=== PATIENT | female | born 1985 | race Caucasian/White ===

== ENCOUNTER 2018-08-05 10:38 | Emergency (ER) | payer OTHER ==
[~2018-08-05] VITALS: Ht 162.6 cm; Wt 56.7 kg
--- NOTE | 2018-08-05 10:44 | NUR ---
PT A/OX4, PRESENTS TO THE ER C/O RLQ ABD PAIN THAT STARTED AROUND 1400 YESTERDAY (08/04/18). PAIN IS NON-PROVOKED, DOES NOT RADIATE, SHARP IN QUALITY, 9/10, CONSTANT. PT PRESENTS W/ ABD GUARDING, ABD NON-DISTENDED IN APPEARANCE, ABD SOUNDS ACTIVE IN ALL 4 QUADRANTS, SOFT ON PALPATION. VSS. PT DENIES C/P, SOB, N/V/D, DIZZINESS, HEADACHE.
--- NOTE | 2018-08-05 10:58 | NUR ---
KEVIN FRIAS AT BEDSIDE FOR MSE.
[2018-08-05] MEDS ORDERED: IV NORMAL SALINE 1000 ML BAG IV ONE (11:00)
[2018-08-05] MEDS ORDERED: ONDANSETRON 4 MG/2 ML VIAL IV ONE (11:00)
[2018-08-05] MEDS ORDERED: KETOROLAC TROMETHAMINE 15 MG INJ IV ONE (11:00)
[2018-08-05 11:09] LABS: *BILIRUBIN,URIN NEGATIVE (NEGATIVE); *BLOOD, URINE NEGATIVE (NEGATIVE); *CLARITY,URINE CLEAR (CLEAR); *COLOR,URINE YELLOW (YELLOW); *KETONES,URINE NEGATIVE (NEGATIVE); *UROBILINOGEN,URINE 0.2 E.U./dl (NORMAL); LEUKOCYTE ESTERASE ,URINE NEGATIVE (NEGATIVE); NITRITE, URINE NEGATIVE (NEGATIVE); UGLUCOSE NEGATIVE (NEGATIVE)
[2018-08-05] MEDS ORDERED: KETOROLAC TROMETHAMINE 15 MG INJ ONE (11:14)
[2018-08-05] MEDS ORDERED: ONDANSETRON 4 MG/2 ML VIAL ONE (11:14)
--- NOTE | 2018-08-05 11:14 | NUR ---
PT C/O NAUSEA, MEDICATED W/ ONDANSETRON PER MD ORDER.
--- NOTE | 2018-08-05 11:15 | NUR ---
US TECH AT BEDSIDE.
[2018-08-05 11:16] LABS: BASOPHILS # (AUTO) 0.1 K/uL (0.0-8.0); BASOPHILS % (AUTO) 1.1 % (0.0-2.0); EOSINOPHILS % (AUTO) 0.6 % (0.0-7.0); HEMOGLOBIN 11.1 g/dL (10.9-14.3); LYMPHOCYTES % (AUTO) 25.7 % (20.5-51.5); MEAN CORPUSCULAR HEMOGLOBIN 21.4 uug (24.7-32.8); MEAN CORPUSCULAR HGB CONC 32 g/dL (32.3-35.6); MEAN CORPUSCULAR VOLUME 67.3 fL (75.5-95.3); MONOCYTES # (AUTO) 0.5 K/uL (2.0-10.0); MONOCYTES % (AUTO) 6.9 % (0.0-11.0); NEUTROPHILS # (AUTO) 5.1 K/uL (1.8-8.9); NEUTROPHILS % (AUTO) 65.7 % (38.5-71.5); PLATELET COUNT (AUTO) 270 K/uL (179-408); WHITE BLOOD COUNT (AUTO) 7.8 K/uL (3.8-11.8)
--- NOTE | 2018-08-05 11:17 | NUR ---
FEMALE CHAPPERONE AT BEDSIDE ACCOMPANYING [employer].
[2018-08-05 11:19] LABS: BACTERIA,URINE FEW /HPF (NONE SEEN); RBC,URINE NONE SEEN /HPF (0-3); SQUAMOUS EPITHELIAL CELL,UR FEW /HPF (NONE SEEN); WBC,URINE 0-3 /HPF (0-3)
[2018-08-05 11:27] LABS: CREATININE 0.6 mg/dL (0.6-1.3); POTASSIUM 3.5 mmol/L (3.5-5.1)
[2018-08-05 11:33] LABS: BILIRUBIN,DIRECT 0.1 mg/dL (0.0-0.2); BILIRUBIN,TOTAL 0.7 mg/dL (0.2-1.0); TOTAL PROTEIN, SERUM 8.6 g/dL (6.4-8.2)
[2018-08-05] MEDS ORDERED: IOHEXOL 300MG/ML 100 ML INFUS..BTL ONE (11:49)
[2018-08-05] MEDS ORDERED: SWABABLE VALVE TRANSFER SET EA MC ONE (11:49)
[2018-08-05] MEDS ORDERED: IV NORMAL SALINE 250 ML IV ONE (11:49)
--- NOTE | 2018-08-05 12:03 | NUR ---
PT CONSENTED FOR CT SCAN W/ CONTRAST. PT TAKEN TO RADIOLOGY FOR CT SCAN.
--- NOTE | 2018-08-05 12:16 | NUR ---
PT BACK IN ER FROM RADIOLOGY.
--- NOTE | 2018-08-05 12:42 | NUR ---
KEVIN FRIAS AT BEDSIDE FOR PT UPDATE.
--- NOTE | 2018-08-05 12:56 | NUR ---
Patient discharged to home in stable conditon. Written and verbal after care instructions given. Patient verbalizes understanding of instructions. ALL BELONGINGS W/ PT. PT SELF-AMBULATED W/O DIFFICULTY. 20G IV ACCESS IN LAC REMOVED PRIOR TO D/C - INNER CANNULA INTACT.
[2018-08-05 12:57] VITALS: BP 128/72
== END 2018-08-05 12:58 | disposition home or self-care (01) ==
LOC: ER 10:38
DX: K57.32 Diverticulitis of large intestine without perforation or abscess without bleeding (principal); N83.201 Unspecified ovarian cyst, right side; Z86.2 Personal history of diseases of the blood and blood-forming organs and certain disorders involving the immune mechanism
CPT/HCPCS: 36415; 74177; 76856; 80048; 80076; 81001; 83690; 84702; 85025; 96361; 96374; 96375; 99284; J1885; J2405; Q9967; A4663; J7030; J7050

== ENCOUNTER 2018-08-09 12:11 | Emergency (ER) | payer OTHER ==
[~2018-08-09] VITALS: Ht 162.6 cm; Wt 56.7 kg
[2018-08-09] MEDS ORDERED: AMOX-430 PO (12:25)
[2018-08-09] MEDS ORDERED: ONDANSETRON 4 MG/2 ML VIAL ONE (13:24)
[2018-08-09] MEDS ORDERED: LORAZEPAM 2 MG/1 ML VIAL ONE (13:26)
[2018-08-09] MEDS ORDERED: ONDANSETRON 4 MG/2 ML VIAL IV ONE (13:30)
[2018-08-09] MEDS ORDERED: LORAZEPAM 2 MG/1 ML VIAL IV ONE (13:30)
[2018-08-09] MEDS ORDERED: IV NORMAL SALINE 1000 ML BAG IV ONE ×2 (13:30)
[2018-08-09] MEDS ORDERED: ONDANSETRON IV *ER 4 MG/2 ML VIAL IV ONE (13:30)
[2018-08-09 13:37] LABS: BASOPHILS # (AUTO) 0.1 K/uL (0.0-8.0); BASOPHILS % (AUTO) 0.7 % (0.0-2.0); EOSINOPHILS % (AUTO) 0.1 % (0.0-7.0); HEMOGLOBIN 10.7 g/dL (10.9-14.3); LYMPHOCYTES # (AUTO) 2.4 K/uL (20.0-40.0); LYMPHOCYTES % (AUTO) 24.3 % (20.5-51.5); MEAN CORPUSCULAR HEMOGLOBIN 21.7 uug (24.7-32.8); MEAN CORPUSCULAR HGB CONC 32 g/dL (32.3-35.6); MEAN CORPUSCULAR VOLUME 66.9 fL (75.5-95.3); MONOCYTES # (AUTO) 0.5 K/uL (2.0-10.0); NEUTROPHILS # (AUTO) 6.8 K/uL (1.8-8.9); NEUTROPHILS % (AUTO) 69.9 % (38.5-71.5); PLATELET COUNT (AUTO) 324 K/uL (179-408); RED BLOOD CELL COUNT(AUTO) 4.93 MIL/uL (3.63-4.92); WHITE BLOOD COUNT (AUTO) 9.7 K/uL (3.8-11.8)
[2018-08-09 13:39] LABS: *BILIRUBIN,URIN NEGATIVE (NEGATIVE); *CLARITY,URINE CLEAR (CLEAR); *COLOR,URINE LIGHT YELLOW (YELLOW); *KETONES,URINE 3+ (NEGATIVE); *UROBILINOGEN,URINE 0.2 E.U./dl (NORMAL); LEUKOCYTE ESTERASE ,URINE NEGATIVE (NEGATIVE); NITRITE, URINE NEGATIVE (NEGATIVE); UGLUCOSE NEGATIVE (NEGATIVE)
[2018-08-09 13:42] LABS: *BLOOD, URINE TRACE (NEGATIVE)
[2018-08-09 13:43] LABS: BACTERIA,URINE FEW /HPF (NONE SEEN); RBC,URINE NONE SEEN /HPF (0-3); SQUAMOUS EPITHELIAL CELL,UR FEW /HPF (NONE SEEN); WBC,URINE NONE SEEN /HPF (0-3)
[2018-08-09 13:45] LABS: CARBON DIOXIDE 19 mmol/L (21-32); CHLORIDE 99 mmol/L (98-107); CREATININE 0.6 mg/dL (0.6-1.3); GLUCOSE 81 mg/dL (74-106); POTASSIUM 2.9 mmol/L (3.5-5.1); UREA NITROGEN, BLOOD 7 mg/dL (7-18)
[2018-08-09 13:51] LABS: ALANINE AMINOTRANSFERASE 16 U/L (14-59); ALKALINE PHOSPHATASE 58 U/L (50-136); ASPARTATE AMINOTRANSFERASE 14 U/L (15-37); BILIRUBIN,DIRECT 0.2 mg/dL (0.0-0.2); BILIRUBIN,TOTAL 0.9 mg/dL (0.2-1.0); LIPASE 88 U/L (73-393)
--- NOTE | 2018-08-09 13:57 | NUR ---
Patient is resting comfortably on gurney, IV fluids infusing well. PATIENT IS PAIN FREE AT THIS TIME.
[2018-08-09] MEDS ORDERED: IV NORMAL SALINE 250 ML IV ONE (14:24)
[2018-08-09] MEDS ORDERED: IOHEXOL 300MG/ML 100 ML INFUS..BTL ONE (14:24)
[2018-08-09] MEDS ORDERED: SWABABLE VALVE TRANSFER SET EA MC ONE (14:24)
[2018-08-09] MEDS ORDERED: POTASSIUM CHLORIDE 20 MEQ TAB.PRT.SR PO ONE (15:15)
[2018-08-09] MEDS ORDERED: POTASSIUM CHLORIDE 20 MEQ TAB.PRT.SR ONE (15:25)
--- NOTE | 2018-08-09 15:45 | NUR ---
Copies of all the tests results were provided to the patient. Patient is smiling appropriately, calm, denies any intolerable pains at this time.
--- NOTE | 2018-08-09 15:52 | NUR ---
IV removed. Catheter intact and site benign. Pressure and 4x4 gauze applied to site. No bleeding noted. Patient discharged to home in stable conditon with brisk steady gait. Written and verbal after care instructions given to patient and patient's mother. Patient and family verbalized understanding of instructions.
== END 2018-08-09 15:59 | disposition home or self-care (01) ==
LOC: ER 12:13
DX: R10.84 Generalized abdominal pain (principal); R11.2 Nausea with vomiting, unspecified; R19.7 Diarrhea, unspecified; Z79.899 Other long term (current) drug therapy
CPT/HCPCS: 36415; 74177; 76856; 80048; 80076; 81001; 83690; 84702; 85025; 96361; 96374; 96375; 99284; J2060; J2405; Q9967; A4663; J7030; J7050